=== PATIENT | female | born 1955 | race Caucasian/White ===

== ENCOUNTER 2020-02-17 09:54 | Emergency (ER) | payer SELFPAY ==
[2020-02-17] MEDS ORDERED: Acetaminophen 500 MG TAB ONE (10:15)
--- NOTE | 2020-02-17 10:40 | RAD ---
Radiograph left elbow 4 views: DATE: 02/17/2020 HISTORY: 64-year-old female with acute traumatic elbow pain after fall FINDINGS: There is no fracture or dislocation. IMPRESSION: Negative
--- NOTE | 2020-02-17 11:04 | RAD ---
LEFT SHOULDER 3 VIEWS: HISTORY: Fall, left shoulder pain. FINDINGS/IMPRESSION: There are fractures involving the left humeral neck and greater tuberosity with minimal displacement. POS: [facility]
== END 2020-02-17 10:45 | disposition home or self-care (01) ==
LOC: MADERS 09:54
DX: S42.212A Unspecified displaced fracture of surgical neck of left humerus, initial encounter for closed fracture (principal); I25.10 Atherosclerotic heart disease of native coronary artery without angina pectoris; I10 Essential (primary) hypertension; F17.210 Nicotine dependence, cigarettes, uncomplicated; Z79.82 Long term (current) use of aspirin; Z79.899 Other long term (current) drug therapy; W18.09XA Striking against other object with subsequent fall, initial encounter

== ENCOUNTER 2020-02-17 21:17 | Emergency (ER) | payer SELFPAY ==
--- NOTE | 2020-02-17 22:00 | RAD ---
Exam: One view chest 3 views left RIBS HISTORY: Fall from standing. FINDINGS: Chest one view: Sternotomy wires. Normal cardiac silhouette. Pleural spaces are clear. Telephoner marilu lung parenchymal changes. 1.3 cm nodule in the right lung. Nodule is present on a previous CT from 01/13/2017. No consolidation. No pneumothorax. Left humeral neck fracture Left rib series: With regard to the left ribs, no fracture, cortical irregularity or periosteal react ion. IMPRESSION: 1. No acute cardiopulmonary process. 2. Left humeral neck fracture.
== END 2020-02-17 22:12 | disposition home or self-care (01) ==
LOC: MADERS 21:17
DX: S29.011A Strain of muscle and tendon of front wall of thorax, initial encounter (principal); I25.10 Atherosclerotic heart disease of native coronary artery without angina pectoris; I10 Essential (primary) hypertension; F17.210 Nicotine dependence, cigarettes, uncomplicated; Z79.82 Long term (current) use of aspirin; Z79.899 Other long term (current) drug therapy; W19.XXXA Unspecified fall, initial encounter

== ENCOUNTER 2022-03-07 08:24 | Emergency (ER) | payer MEDICARE, SELFPAY ==
[2022-03-07 08:52] LABS: #Basophils 0.2 thou/uL (0.0-0.2); #Eosinphils 0.2 thou/uL (0.0-0.7); #Lymphocytes 2.8 thou/uL (1.20-3.40); #Monocytes 0.7 thou/uL (0.11-0.59); #Neutrophils 6.2 thou/uL (1.40-6.50); %Basophils 1.8 % (0.0-1.0); %Eosinophils 1.9 % (0.0-10.0); %Lymphocytes 28.1 % (21.0-51.0); %Neutrophils 61.2 % (42.0-75.0); Hemoglobin 16.5 g/dL (12.0-16.0); Mean Corpuscular Hemoglobin 29.6 pg (27.0-31.0); Mean Corpuscular Volume 92.5 fL (78.0-98.0); Mean Platelet Volume 10.2 fL (7.4-10.4); Platelet Count 268 thou/uL (130-400); RBC Distribution Width 12.4 % (11.5-14.5); Red Blood Cell (RBC) Count 5.57 mill/uL (4.20-5.40); White Blood Cell (WBC) Count 10.1 thou/uL (4.8-10.8)
[2022-03-07] MEDS ORDERED: Aspirin Chewable 81 MG TAB ONE (08:55)
[2022-03-07 09:07] LABS: ALT (SGPT) 11 U/L (8-55); AST (SGOT) 13 U/L (5-34); Albumin 4.4 g/dL (3.4-4.8); Alkaline Phosphatase 118 U/L (40-110); Anion Gap 15 mmol/L (10-20); BUN (Urea Nitrogen) 7 mg/dL (9.8-20.1); Bilirubin, Total 0.5 mg/dL (0.2-1.2); Calc. Creatinine Clearance 0 mL/min (70-130); Calcium 9.4 mg/dL (7.8-10.44); Carbon Dioxide 27 mmol/L (23-31); Chloride 105 mmol/L (98-107); Globulin 2.7 g/dL (2.4-3.5); Glucose 96 mg/dL (80-115); Magnesium 2.3 mg/dL (1.6-2.6); Potassium 3.8 mmol/L (3.5-5.1); Protein, Total 7.1 g/dL (5.8-8.1); Sodium 143 mmol/L (136-145)
[2022-03-07 11:44] LABS: CKMB 1.4 ng/mL (0-6.6)
== END 2022-03-07 12:40 | disposition short-term general hospital (02) ==
LOC: MADERS 08:24
DX: R07.9 Chest pain, unspecified (principal); F17.210 Nicotine dependence, cigarettes, uncomplicated
CPT/HCPCS: 71045; 80053; 82553; 83735; 83880; 84484; 85025; 93005